=== PATIENT | male | born 1960 | race Caucasian/White ===

== ENCOUNTER 2016-05-08 20:57 | Emergency (ER) ==
--- NOTE | 2016-05-08 21:45 | PROVIDER DOCUMENTATION ---
HPI-General Adult <Ayden Shore - Last Filed: 05/08/16 22:44> - General Source: patient - History of Present Illness -Gen Adult Nature of Presenting Problems: 55 year old M presents to the ED with a cc of cough, sore throat, congestion, and back pain. PT states that cough, sore throat, and congestion began Saturday night and back pain began Saturday. Pt c/o chest pain with coughing. Location of Pain/Injury: reports: back Pain Radiation: reports: no radiation Quality of Pain: reports: aching Severity: reports: mild Onset/Duration: reports: 3 days ago Timing: reports: still present Modifying Factors: worse with: other (walking) Associated Symptoms: reports: back/neck pain, cough, EENT symptoms, sinus congestion/drainage Similar Symptoms Previously?: No Recently seen or treated by another doctor?: No <Puja Alex - Last Filed: 05/08/16 22:52> - General Chief Complaint: Flu Symptoms Stated Complaint: FLU LIKE SX Time Seen by Provider: 05/08/16 21:40 Allergies/Adverse Reactions: Patient Allergies Allergy/AdvReac Type Severity Reaction Status Date / Time No Known Allergies Allergy Verified 05/08/16 22:11 Home Medications: Home Medication List Medication Instructions Recorded Confirmed Last Taken Type Amoxicillin 875 mg PO Q8HR #30 tablet 05/08/16 Unknown Rx Ibuprofen/Hydrocodone [Vicoprofen 1 each PO Q4H PRN PRN #30 tablet 05/08/16 Unknown Rx 200/7.5 mg] Methocarbamol [Robaxin-750] 750 mg PO TID #30 tablet 05/08/16 Unknown Rx Review of Systems - Adult - REVIEW OF SYSTEMS - ADULT Constitutional: denies: chills, fever Eyes: reports: no symptoms reported Ears, Nose, Mouth & Throat: reports: sinus problem, throat pain. denies: ear pain Cardiovascular: reports: no symptoms reported Respiratory: reports: cough. denies: shortness of breath Gastrointestinal: denies: nausea, vomiting Genitourinary: reports: no symptoms reported Musculoskeletal: reports: back pain. denies: neck pain Integumentary: reports: no symptoms reported Neurological: reports: no symptoms reported Psychiatric: reports: no symptoms reported Endocrine: reports: no symptoms reported Hematologic/Lymphatic: reports: no symptoms reported Allergic/Immunologic: reports: no symptoms reported All Other Systems: Reviewed and Negative <Puja Alex - Last Filed: 05/08/16 22:52> Past History - Adult - PAST MEDICAL HISTORY-ADULT Review of Records: reports: Nursing Assessment Review, Medications Reviewed Major Childhood Illnesses: reports: denies history Cardiovascular: reports: [place] Musculoskeletal: reports: other (gout) - PRIOR SURGERIES/PROCEDURES Surgical/Procedure History: reports: orthopedic (extremity) (left hand) - IMMUNIZATION STATUS Childhood Immunizations: See Nurse Assessment Flu Vaccine: See Nurse Assessment - SOCIAL HISTORY Smoking: quit greater than 1 year Substance Use: none/never Alcohol Use Frequency: never <Puja Alex - Last Filed: 05/08/16 22:52> Physical Exam-General - PHYSICAL EXAM-ADULT Initial Vital Signs Reviewed: Yes - CONSTITUTIONAL General Appearance: appears well, alert, no apparent distress - HEAD, EARS, NOSE, MOUTH & THROAT HENMT: normocephalic/atraumatic, moist mucous membranes, normal ENT inspection, TMs normal, pharynx normal - RESPIRATORY Respiratory: chest non-tender, normal breath sounds, rhonchi (left greater than right) - CARDIOVASCULAR Cardiovascular: normal peripheral pulses, regular rate, rhythm, no edema - GASTROINTESTINAL (ABDOMEN) Abdominal Exam: non tender, soft - MUSCULOSKELETAL Back Exam: vertebral tenderness (L4-5, paraspinous lumbar muscle tenderness) <Puja Alex - Last Filed: 05/08/16 22:52> Progress - PLAN OF CARE/RESULTS Progress/Plan/Lab Results: plan of care: imaging, labs, medications Orders Category Date Time Status CHEST-2 VIEWS [RAD] Stat Exams 05/08/16 21:48 Taken LUMBAR SPINE W/O CONTRAST [CT] Stat Exams 05/08/16 21:48 Taken Flu Swab [INFLUENZA SCREEN A/B] Stat Lab 05/08/16 21:04 Completed CefTRIAXONE [Rocephin] Med 05/08/16 22:47 Discontinued 1 gm IM NOW ONE Dexamethasone [Decadron] Med 05/08/16 21:48 Discontinued 10 mg IM NOW ONE Ketorolac [Toradol] Med 05/08/16 21:48 Discontinued 60 mg IM NOW ONE Lidocaine 1% Pf [Xylocaine-Mpf 1%] Med 05/08/16 22:47 Discontinued 5 ml INJ NOW ONE Oxycodone/APAP 10 mg/325 mg [Percocet-10] Med 05/08/16 21:48 Discontinued 1 each PO NOW ONE Vital Signs - 24 hr 05/08/16 21:01 Temperature 97.5 F L Pulse Rate 85 Respiratory 18 Rate Blood Pressure 140/92 O2 Sat by Pulse 99 Oximetry Pt given results and will be d/c home w/ rx to follow up with PCP. Pt verbally understood instructions. PT remained clinically stable throughout the course of the ED stay and will return if symptoms worsen. - XRAY 1 XRAY Interpretation: small nodule RUL and small infiltrate RLL: Dr. Shore- ER MD - CT/MRI 1 CT Study: Lumbar Spine Impression: Normal (No fx. Spinal stenosis and neuralforaminal narrowing in the lower L spine: Dr. Snyder-radiologist) <Puja Alex - Last Filed: 05/08/16 22:52> Departure - Departure Time of Disposition Order: 22:45 Certified Medical Emergency: Emergent <Ayden Shore - Last Filed: 05/08/16 22:44> <Puja Alex - Last Filed: 05/08/16 22:52> - Departure DIAGNOSIS: Acute lumbar back pain, Stenosis of lumbosacral spine, Bronchitis Disposition: HOME 01 Condition: Stable Additional Instructions: ED Follow Up Instructions:repeat cxr in 4week and recheck by pcp You have been treated by a care provider in the Emergency Department. These instructions are being provided to you so you can have an understanding of how to care for yourself upon discharge. Upon discharge from the Emergency Department, you are responsible for making arrangements for follow-up care by a physician of your choice. Take all prescribed medications as directed. Return to the Emergency Department immediately for any new or worsening symptoms. You may call the Physician Referral phone number at [phone] to obtain a list of Physicians who are taking new patients. Prescriptions: Amoxicillin 875 mg PO Q8HR #30 tablet Methocarbamol [Robaxin-750] 750 mg PO TID #30 tablet Ibuprofen/Hydrocodone [Vicoprofen 200/7.5 mg] 1 each PO Q4H PRN PRN #30 tablet PRN Reason: Pain Referrals: None,PCP [Primary Care Provider] - Attestation - Scribe Verification/Attestation Scribe:: Puja Alex Acting as Scribe for:: Ayden Shore Scribe documention review:: This chart was documented by a scribe and accurately reflects the service the provider performed and the decisions made by the provider. <Puja Alex - Last Filed: 05/08/16 22:52> Physician Attestation - Physician Attestation I, the provider, attest to the following statement:: Ayden Shore Physician documentation Attestation:: This documentation recorded by the scribe accurately reflects the service I personally performed and the decisions made by me. <Puja Alex - Last Filed: 05/08/16 22:52>
[2016-05-08] MEDS ORDERED: DECADRON IM ONE (21:48)
[2016-05-08] MEDS ORDERED: PERCOCET-10 PO ONE (21:48)
[2016-05-08] MEDS ORDERED: TORADOL IM ONE (21:48)
[2016-05-08] MEDS ORDERED: ROCEPHIN IM ONE (22:47)
[2016-05-08] MEDS ORDERED: XYLOCAINE-MPF 1% INJ ONE (22:47)
[2016-05-08 23:09] VITALS: BP 165/96
--- NOTE | 2016-05-08 23:20 | Diag Imaging Result Document ---
PROCEDURE NAME: LUMBAR SPINE W/O CONTRAST - 05/08/2016 CT LUMBAR SPINE WITHOUT CONTRAST: FINDINGS: There is good alignment to the lumbar spine. No compressed vertebra. No other fracture. There is nonunion to the right transverse process of the L1 vertebra. There are degenerative changes to the lumbar spine. There is multilevel spinal stenosis in the lower lumbar spine. The spinal stenosis is most pronounced at L4-5. There is neural foraminal narrowing at each of these levels and marked neural foraminal narrowing on the right at L5-S1. There is at least moderate spinal stenosis at L3-4. IMPRESSION: 1. No acute bony injury. 2. Multilevel spinal stenosis and neural foraminal narrowing. A follow-up MRI on an outpatient basis may be beneficial. A preliminary report was given at 10:38 p.m..
--- NOTE | 2016-05-09 07:27 | Diag Imaging Result Document ---
PROCEDURE NAME: CHEST-2 VIEWS - 05/08/2016 CHEST X-RAY, 2 VIEWS: COMPARISON: None. FINDINGS: There may be a subtle infiltrate in the lingula. Heart size is normal. No pneumothorax or pleural effusion. IMPRESSION: Questionable lingular infiltrate/pneumonia.
== END 2016-05-08 23:33 | disposition home or self-care (01) ==
LOC: ED 20:57
DX: J40 Bronchitis, not specified as acute or chronic (principal); M48.07 Spinal stenosis, lumbosacral region; M54.5 Low back pain; R05 Cough; J02.9 Acute pharyngitis, unspecified; R09.81 Nasal congestion; R07.89 Other chest pain; M79.1 Myalgia; I25.2 Old myocardial infarction; Z87.891 Personal history of nicotine dependence
CPT/HCPCS: 71020; 72131; 87804; J0696; J1885

== ENCOUNTER 2019-04-16 08:38 | Observation (INO) ==
[2019-04-16] MEDS ORDERED: ASPIRIN PO ONE (08:42)
--- NOTE | 2019-04-16 08:55 | PROVIDER DOCUMENTATION ---
HPI-Chest Pain - General Chief Complaint: Chest Pain Stated Complaint: CHEST PAIN Time Seen by Provider: 04/16/19 08:43 Source: patient Allergies/Adverse Reactions: Patient Allergies Allergy/AdvReac Type Severity Reaction Status Date / Time No Known Allergies Allergy Verified 08/25/17 13:07 Home Medications: Home Medication List Medication Instructions Recorded Confirmed Last Taken Type Glimepiride [Amaryl] 4 mg PO DAILY #30 tab 08/25/17 Unknown Rx Metformin [Glucophage] 500 mg PO BID CC #60 tab 08/25/17 Unknown Rx Ondansetron [Ondansetron Odt] 4 mg PO Q6-8H PRN PRN #20 04/08/18 Unknown Rx tab.rapdis Oseltamivir [Tamiflu] 75 mg PO BID #10 cap 04/08/18 Unknown Rx Cyclobenzaprine [Flexeril] 10 mg PO Q8H PRN #12 tab 05/15/18 Unknown Rx Ibuprofen [Motrin] 800 mg PO Q8H PRN PRN #20 tab 05/15/18 Unknown Rx - History of Present Illness-CP Nature of Presenting Problem: 58 YOM who denies PMH however it is noted a hx of DM in previous records, pt denies taking any medications. He presents with c/o sharp and heavy CP that radiates down the L arm intermittently since Saturday, no associated symptoms. Hx of heart cath, unknown results has been years ago. He also c/o L leg pain in the hip worse with movement. He denies cough, fever, chills, sob, n/v/d. Location: reports: substernal Chest Pain Radiation: reports: arms (L) Quality of Pain: reports: pressure, sharp Severity in ED: moderate Onset/Duration: 24 hours ago Timing: intermittent Context/Activities at Onset: reports: none Modifying Factors: improves with: nothing Associated Symptoms: reports: denies symptoms Nitro Today/Relief: no nitro taken today Aspirin Treatment Today: 325 mg x 1, provided by ED Prior Chest Pain/Cardiac Workup: reports: cardiac cath (UNKNWON RESULTS, YEARS AGO) Similar Symptoms Previously?: No Recently Seen Here or By Another Healthcare Provider: No Review of Systems - Adult - REVIEW OF SYSTEMS - ADULT Constitutional: reports: no symptoms reported. denies: see HPI, chills, fever, fatique, night sweats, weight gain, weight loss, other Eyes: reports: no symptoms reported. denies: see HPI, discharge, dry eyes, decreased vision, blurred vision, double vision, eye pain, redness, other Ears, Nose, Mouth & Throat: reports: no symptoms reported. denies: see HPI, ear discharge, ear pain, hearing loss, tinnitus, epistaxis, sinus problem, nose pain, loose teeth, mouth/dental pain, mouth swelling, hoarseness, throat pain, throat swelling, other Cardiovascular: reports: chest pain. denies: no symptoms reported, see HPI, edema, heart murmur, irregular heart rate, orthopnea, palpitations, poor circulation, PND, syncope, other Respiratory: reports: no symptoms reported. denies: see HPI, chronic cough, cough, dyspnea on exertion, excessive sputum production, hemoptysis, pleurisy, shortness of breath, wheezing, other Gastrointestinal: reports: no symptoms reported. denies: see HPI, abdominal pain, hematemesis, constipation, diarrhea, difficulty swallowing, frequent heartburn, nausea, poor appetite, rectal bleeding, vomiting, other Genitourinary: reports: no symptoms reported. denies: see HPI, dysuria, discharge, frequency, flank pain, frequent UTI's, hematuria, hesitency, incontinence, urinary retention, urgency, other Musculoskeletal: reports: see HPI, joint pain. denies: no symptoms reported, bone pain, back pain, frequent leg cramps, joint swelling, muscle aches, muscle weakness, neck pain, other Integumentary: reports: no symptoms reported. denies: see HPI, hives, hair loss, itching, mole changes, nail changes, rash, skin sores/ulcer, skin thickening, other Neurological: reports: no symptoms reported. denies: see HPI, ataxia, dizziness/vertigo, headache/migraines, loss of balance, numbness, paresthesia, seizure, slurred speech, syncope, tremors, other Psychiatric: reports: no symptoms reported. denies: see HPI, anxiety, anti- depressant use, alcohol/drug dependence, depression, emotional problems, insomnia, panic attacks, suicidal thoughts, other Endocrine: reports: no symptoms reported. denies: see HPI, change in skin pigment, excessive sweating, goiter, cold intolerance, heat intolerance, increased hunger, increased thirst, polyuria, other Hematologic/Lymphatic: reports: no symptoms reported. denies: see HPI, blood clots, easy bruising, low blood count, lymphedema, prolonged bleeding, swollen lymph nodes, transfusions, other Allergic/Immunologic: reports: no symptoms reported. denies: see HPI, allergic reactions, allergic rhinitis, asthma, eczema, food allergy, frequent infections, hay fever, hives, positive PPD, urticaria, other Past History - Adult - PAST MEDICAL HISTORY-ADULT Review of Records: reports: Nursing Assessment Review, Social history reviewed & non-contributory. Major Childhood Illnesses: reports: denies history Cardiovascular: reports: [place] Respiratory: reports: denies history Gastrointestinal: reports: denies history Obstetrical/Gynecological: reports: denies history Genitourinary: reports: denies history Musculoskeletal: reports: other (gout) Neurological: reports: denies history Psychiatric: reports: denies history Endocrine/Immune: reports: denies history Other Conditions: reports: denies history - PRIOR SURGERIES/PROCEDURES Surgical/Procedure History: reports: orthopedic (extremity) (left hand) - IMMUNIZATION STATUS Childhood Immunizations: See Nurse Assessment Flu Vaccine: See Nurse Assessment - FAMILY HISTORY Family History: reviewed, not pertinent Physical Exam-General - PHYSICAL EXAM-ADULT Initial Vital Signs Reviewed: Yes - CONSTITUTIONAL General Appearance: appears well, alert, no apparent distress - EYES Eyes: PERRL/EOMI, pink conjunctivae - HEAD, EARS, NOSE, MOUTH & THROAT HENMT: normocephalic/atraumatic, moist mucous membranes, normal ENT inspection - NECK Neck: non-tender, full range of motion, supple - RESPIRATORY Respiratory: chest non-tender, lungs clear, normal breath sounds, no pleuratic chest pain, no respiratory distress, no accessory muscle use - CARDIOVASCULAR Cardiovascular: normal peripheral pulses, regular rate, rhythm, no edema, no gallop, no JVD, no murmur - CHEST (BREASTS) Chest/Breast: tenderness (GENERALIZED CHEST) - GASTROINTESTINAL (ABDOMEN) Abdominal Exam: normal bowel sounds, non tender, soft - LYMPHATIC Lymphatic: no adenopathy - MUSCULOSKELETAL Back Exam: normal inspection, no CVA tenderness, no vertebral tenderness Extremity: normal range of motion, non-tender, normal gait, normal inspection Peripheral Pulses: radial (R): 2+, radial (L): 2+ - SKIN Integumentary: normal color, normal turgor, warm/dry - NEUROLOGIC Neurologic: grossly normal - PSYCHIATRIC Psych/Mental Status: normal mood/affect, oriented x 3 - HEART Score HEART Score: History: Moderately Suspicious HEART Score: ECG: Non-Specific Repolarization Disturbance/LBBB/PM HEART Score: Age: 45-65 Years HEART Score: Risk Factors for Atherosclerotic Disease: 1 or 2 Risk Factors HEART Score: Troponin: < or = Normal Limit Total HEART Score:: 4 Progress - PLAN OF CARE/RESULTS Progress/Plan/Lab Results: Vital Signs - 8 hr 04/16/19 08:41 04/16/19 09:42 Temperature 98.2 F Pulse Rate 79 72 Respiratory Rate 18 22 Blood Pressure 175/89 153/92 O2 Sat by Pulse Oximetry 95 94 L Laboratory Results - last 24 hr 04/16/19 04/16/19 04/16/19 08:50 08:50 08:50 WBC RBC Hgb Hct MCV MCH MCHC RDW Std Deviation Plt Count MPV Immature Gran % (Auto) Neut % (Auto) Lymph % (Auto) Thomas % (Auto) Eos % (Auto) Baso % (Auto) Immature Gran # (Auto) Neut # (Auto) Lymph # (Auto) Thomas # (Auto) Eos # (Auto) Baso # (Auto) PT INR PTT (Actin FS) Sodium 133 L Potassium 4.2 Chloride 99 Carbon Dioxide 23 L Anion Gap 12 BUN 11 Creatinine 0.7 Estimated GFR/1.73 m2 > 60 BUN/Creatinine Ratio 16 Glucose 279 H Calculated Osmolality 276 Calcium 9.1 Total Bilirubin 0.50 AST 21 ALT 30 Alkaline Phosphatase 80 Creatine Kinase 189 Troponin T High Sens 7 Obi-W-Wrnwnrxlkkf Pept 19 Total Protein 7.1 Albumin 4.2 Globulin 3.0 Albumin/Globulin Ratio 1.0 04/16/19 04/16/19 08:50 08:50 WBC 7.16 RBC 5.03 Hgb 14.9 Hct 45.0 MCV 89.5 MCH 29.6 MCHC 33.1 RDW Std Deviation 12.4 Plt Count 237 MPV 9.4 Immature Gran % (Auto) 0.3 Neut % (Auto) 65.1 Lymph % (Auto) 21.5 Thomas % (Auto) 10.8 H Eos % (Auto) 1.7 Baso % (Auto) 0.6 Immature Gran # (Auto) 0.02 Neut # (Auto) 4.67 Lymph # (Auto) 1.54 Thomas # (Auto) 0.77 H Eos # (Auto) 0.12 Baso # (Auto) 0.04 PT 12.5 INR 0.89 PTT (Actin FS) 28.3 Sodium Potassium Chloride Carbon Dioxide Anion Gap BUN Creatinine Estimated GFR/1.73 m2 BUN/Creatinine Ratio Glucose Calculated Osmolality Calcium Total Bilirubin AST ALT Alkaline Phosphatase Creatine Kinase Troponin T High Sens Xvb-N-Kmzrosgetji Pept Total Protein Albumin Globulin Albumin/Globulin Ratio Orders Category Date Time Status Cardiac Monitoring DIRECTED Care 04/16/19 08:42 Active Oxygen Therapy- ED Nursing DIRECTED Care 04/16/19 08:42 Active Saline Loc NOW Care 04/16/19 08:42 Active CHEST-2 VIEWS [RAD] Stat Exams 04/16/19 08:42 Completed CBC WITH ELECTRONIC DIFF [HEME] Stat Lab 04/16/19 08:50 Completed CK PROFILE [SP CHEM] Stat Lab 04/16/19 08:50 Completed COMPREHENSIVE METABOLIC PANEL [CHEM] Stat Lab 04/16/19 08:50 Completed PRO B-NATRIURETIC PEPTIDE Stat Lab 04/16/19 08:50 Completed PROTIME WITH INR [COAG] Stat Lab 04/16/19 08:50 Completed PTT [COAG] Stat Lab 04/16/19 08:50 Completed TROPONIN T HIGH SENSITIVITY Stat Lab 04/16/19 08:50 Completed Aspirin Med 04/16/19 08:42 Discontinued 325 mg PO NOW ONE Morphine Med 04/16/19 09:36 Discontinued 4 mg IV NOW ONE Ondansetron [Zofran] Med 04/16/19 09:36 Discontinued 4 mg IV NOW ONE CP/SOB/Palp >45 yrs of Age Stat Oth 04/16/19 08:42 Ordered EKG [EKG] Stat Ther 04/16/19 08:42 Draft Result Diagrams: 04/16/19 08:50 04/16/19 08:50 - REASSESSMENT Reassessment #1 Time Reassessed: 10:12 (pain improved with morphine ) Status: improving - EKG 1 Time of EKG reading by physician:: 08:49 EKG Read and Signed by:: Juwan Mcclelland EKG Interpretation (*Must complete 3 of following elements*): Abnormal Rate: 76 Rhythm: NSR [place]: normal QRS: RBB (INCOMPLETE) MS Interval: normal ST Wave: normal Prior EKG Comparison: changes noted (INCOMPLETE RBBB) - XRAY 1 XRAY Study: Chest Impression: See EMR Report Comparison with other Films: no prior study (EXAM: CHEST-2 VIEWS HISTORY: cp TECHNIQUE: Two views COMPARISON: 05/15/2018 FINDINGS: The lungs are well expanded. The heart is not enlarged. The vessels are not distended. There are no infiltrates. No pleural effusions. IMPRESSION: No acute abnormality. Electronically signed by Yobani Snyder 04/16/2019 9:02 AM 04/16/19901 Interpreting Physician: Yobani Snyder MD Dictated Date/Time: 04/16/19901 cc: Juwan Mcclelland MD; None,PCP) - CONSULTS/PCP/HOSPITALIST Notification #1 *Consult/PCP/Hospitalist*: Dr. Navarrete Time Discussed: 10:11 Consult Disposition: Admit Departure - Departure Date of Disposition Decision: 04/16/19 Time of Disposition Decision: 10:11 DIAGNOSIS: Chest pain, Diabetes Disposition: ADMITTED INPATIENT 09 Certified Medical Emergency: Emergent Condition: Stable Referrals and Follow-Ups: None,PCP [Primary Care Provider] - - Critical Care Note This patient required my direct & personal management of CC.: No Attestation - Physician/ ALEX Attestation Patient care was provided by Advanced Practice Provider:: Yes Advanced Practice Provider:: Mirtha Burton Advanced Practice Provider documentation review:: The Mid-level provider documentation, treatment plan and medical decision making was reviewed by the physician who agrees with all treatment and medical decision making by the MLP. The physician spent face to face time with patient:: No Advanced Practice Provider documentation review:: Supervising physician onsite and consulted in the evaluation and care of this patient. The physician did not have a face to face encounter with the patient.
--- NOTE | 2019-04-16 09:04 | Diag Imaging Result Doc PS360 ---
EXAM: CHEST-2 VIEWS HISTORY: cp TECHNIQUE: Two views COMPARISON: 05/15/2018 FINDINGS: The lungs are well expanded. The heart is not enlarged. The vessels are not distended. There are no infiltrates. No pleural effusions. IMPRESSION: No acute abnormality. Electronically signed by Yobani Snyder 04/16/2019 9:02 AM
[2019-04-16 09:07] LABS: BASO# 0.04 X1000 (0.0-0.2); BASO% 0.6 % (0.0-0.8); EOS# 0.12 X1000 (0.0-0.7); EOS% 1.7 % (0.0-10.0); HEMOGLOBIN 14.9 g/dL (14.0-18.0); IMM GRAN# 0.02 X1000 (0.0-0.04); IMM GRAN% 0.3 % (0.0-0.5); LYMPH# 1.54 X1000 (1.2-3.4); LYMPH% 21.5 % (20.5-51.1); MCH 29.6 PG (27-31); MCHC 33.1 g/dL (33-37); MCV 89.5 FL (81-99); MONO# 0.77 X1000 (0.11-0.59); MONO% 10.8 % (1.7-9.3); MPV 9.4 FL (7.4-10.4); NEUT# 4.67 X1000 (1.4-6.5); NEUT% 65.1 % (42.2-75.2); PLT 237 X1000 (130-400); RBC 5.03 XMIL (4.7-6.1); RDW 12.4 % (11.5-14.5); WBC 7.16 X1000 (4.8-10.8)
--- NOTE | 2019-04-16 09:16 | EKG Report ---
Test Performed on : 04/16/2019 08:44:46 AM Test Reason : cp Blood Pressure : / mmHG Vent. Rate : 076 BPM Atrial Rate : 076 BPM P-R Int : 170 ms QRS Dur : 106 ms QT Int : 362 ms P-R-T Axes : 028 001 036 degrees QTc Int : 407 ms Normal sinus rhythm. Incomplete right bundle branch block Borderline ECG When compared with ECG of 25-AUG-2017 12:37, No significant change was found Unconfirmed Result
[2019-04-16 09:29] LABS: AGAP 12; ALBUMIN 4.2 g/dL (3.5-5.0); ALKALINE PHOSPHATASE 80 U/L (32-122); BUN 11 mg/dL (8-22); CALCIUM 9.1 mg/dL (8.8-10.2); CHLORIDE 99 mmol/L (98-107); CK PROFILE 189 U/L (24-204); COSMO 276; CREATININE 0.7 mg/dL (0.7-1.2); ESTIMATED GFR > 60; GLUCOSE 279 mg/dL (70-104); GOT 21 U/L (10-34); GPT 30 U/L (10-44); POTASSIUM 4.2 mmol/L (3.5-5.1); SODIUM 133 mmol/L (136-145); TCO2 23 mmol/L (25-35); TOTAL PROTEIN 7.1 g/dL (6.3-8.3)
[2019-04-16 09:32] LABS: INR 0.89; PROTIME 12.5 Seconds (11.0-16.0)
[2019-04-16 09:33] LABS: PTT 28.3 Seconds (22.3-41.8)
[2019-04-16] MEDS ORDERED: ZOFRAN IV ONE (09:36)
[2019-04-16] MEDS ORDERED: MORPHINE IV ONE (09:36)
[2019-04-16 10:35] LABS: HEMOGLOBIN A1C 11.9 % (4.8-6.0)
[2019-04-16] MEDS ORDERED: TYLENOL PO PRN (11:39)
[2019-04-16] MEDS ORDERED: ZOFRAN IV PRN (11:39)
[2019-04-16] MEDS ORDERED: NITROGLYCERIN SL PRN (11:39)
[2019-04-16] MEDS ORDERED: APRESOLINE IV PRN (12:06)
[2019-04-16] MEDS ORDERED: PNEUMOVAX 23 IM ONE (12:31)
[2019-04-16] MEDS ORDERED: FLU VACCINE IM ONE (12:31)
--- NOTE | 2019-04-16 12:31 | HISTORY AND PHYSICAL ---
PRIMARY CARE PROVIDER: None. CHIEF COMPLAINT: Chest pain. HISTORY OF PRESENT ILLNESS: Mr. Owens is a 58-year-old male who claims no past medical history, takes no home medications but reports a constant sharp chest pain that radiated down his left arm and left leg since yesterday, felt like an elephant sitting on his chest. It is associated with shortness of breath, funny feeling in his heart. There was no dizziness or diaphoresis. Nothing made the pain worse. The pain was relieved with morphine. He did report he got dizzy after the morphine was given to him. Workup in the ED, first set of cardiac enzymes were negative. EKG showed a normal sinus rhythm with an incomplete right bundle branch block. When compared to old EKG, there was no significant change found. He will be admitted and ruled out for ID as well as control of his diabetes. Hemoglobin A1c of 11.9. We will continue with further care and treatment. PAST MEDICAL HISTORY: Denies. However, he has been discharged from the ED with diabetic medicines previously in 2018 on Amaryl and Glucophage but he reports he did not take them. PAST SURGICAL HISTORY: Plate in his left arm. FAMILY HISTORY: Mom with hypertension, diabetes and stroke. SOCIAL HISTORY: He is , is at bedside. No tobacco, alcohol, marijuana or illicit drug use. ALLERGIES: No known drug allergies. REVIEW OF SYSTEMS: Twelve-point review of systems complete and negative except for those mentioned in HPI. PHYSICAL EXAMINATION: VITAL SIGNS: Temperature is 97.6 degrees, heart rate 69, respirations 18, blood pressure 136/83, O2 is 100% on room air. GENERAL: Mr. Owens is a pleasant 58-year-old male who is sitting up on the stretcher in no acute distress. HEENT: Atraumatic, normocephalic. PERRL. NECK: Supple. Trachea midline. CARDIOVASCULAR: S1, S2 appreciated. No murmurs, gallops, or rubs noted. RESPIRATORY: Lung sounds clear bilaterally. GASTROINTESTINAL: Soft, nontender, nondistended. Positive bowel sounds 4 quads. LOWER EXTREMITIES: Negative for edema. NEUROLOGIC: No focal deficits noted. DIAGNOSTIC DATA: Chest x-ray, no acute abnormality. LABORATORY DATA: White count 7, hemoglobin and hematocrit 14 and 45, platelet count is 237,000. Chemistry: Sodium 133, potassium 4.2, BUN 11, creatinine 0.7, blood glucose is 279. Hemoglobin A1c is 11.9. First troponin is 7, CK 189. ASSESSMENT AND PLAN: 1. Chest pain. Some components are typical, some are atypical. We will rule him out for serial cardiac enzymes. Make him n.p.o. after midnight. Do a stress test in the a.m. Echocardiogram. Continue with aspirin. Do a lipid profile, echocardiogram, n.p.o. after midnight, stress test in a.m., and repeat EKG in a.m. 2. Uncontrolled diabetes mellitus with noncompliance and hyperglycemia. Hemoglobin A1c is 11.9. Will need continued education on medical compliance and diabetes education. We will place him on pattern blood sugars with sliding scale, diabetic diet. 3. Hypertension in the emergency department. He reports no medical history of hypertension. Further recommendations to follow physician evaluation, laboratory and diagnostic data. Dictated by MARTHA Villa for Giuseppe Rain MD cc: Giuseppe Rain MD
[2019-04-16 15:48] LABS: URINE SOURCE VOIDED
[2019-04-16 15:52] LABS: BILIRUBIN URINE NEGATIVE (NEGATIVE); BLOOD URINE NEGATIVE (NEGATIVE); COLOR YELLOW; GLUCOSE URINE >1000 mg/dL (NEGATIVE); KETONE URINE NEGATIVE (NEGATIVE); LEUKOCYTES URINE NEGATIVE (NEGATIVE); NITRITE URINE NEGATIVE (NEGATIVE); PH URINE 6.5; PROTEIN URINE NEGATIVE (NEGATIVE); TURBIDITY URINE CLEAR (CLEAR); UROBILINOGEN URINE NORMAL (NORMAL)
[2019-04-16 15:56] LABS: UR EPITHELIAL CELLS <10 /HPF (<10); URINE BACTERIA NEGATIVE /HPF; URINE CASTS NONE SEEN; URINE CRYSTALS NONE SEEN; URINE RBC <10 /HPF (<10); URINE SMALL ROUND CELLS NONE SEEN; URINE WBC <10 /HPF (<10); URINE YEAST NONE SEEN
[2019-04-16] MEDS ORDERED: HUMALOG (PARKWAY) SUBQ SCH (16:00)
[2019-04-16] MEDS: HUMALOG (PARKWAY) SUBQ SCH ×2 (17:33→23:20)
--- NOTE | 2019-04-16 21:42 | HISTORY AND PHYSICAL ---
ADDENDUM: Patient seen and examined by myself. Full note dictated and discussed with nurse practitioner. Patient presented to the hospital with chest pain, which seems somewhat atypical. He has a history of uncontrolled diabetes with an A1c of 11.9, and hypertension, both of which the patient is adamant that he does not have. We are going to admit him to the hospital and attempt to educate him on diabetes and hypertension, and reasons for control. Will rule out NH and will follow. Please see full note. cc: Giuseppe Rain MD
[2019-04-17] MEDS ORDERED: NS 1,000 ML IV SCH (00:01)
[2019-04-17 05:25] LABS: BASO# 0.03 X1000 (0.0-0.2); BASO% 0.4 % (0.0-0.8); EOS# 0.12 X1000 (0.0-0.7); EOS% 1.8 % (0.0-10.0); HEMATOCRIT 46.5 % (42.0-52.0); HEMOGLOBIN 14.6 g/dL (14.0-18.0); IMM GRAN# 0.03 X1000 (0.0-0.04); IMM GRAN% 0.4 % (0.0-0.5); LYMPH# 1.65 X1000 (1.2-3.4); LYMPH% 24.2 % (20.5-51.1); MCH 28.6 PG (27-31); MCHC 31.4 g/dL (33-37); MCV 91.2 FL (81-99); MONO# 0.81 X1000 (0.11-0.59); MONO% 11.9 % (1.7-9.3); MPV 9.7 FL (7.4-10.4); NEUT# 4.17 X1000 (1.4-6.5); NEUT% 61.3 % (42.2-75.2); PLT 246 X1000 (130-400); RDW 12.7 % (11.5-14.5); WBC 6.81 X1000 (4.8-10.8)
[2019-04-17 06:05] LABS: AGAP 12; ALBUMIN 3.8 g/dL (3.5-5.0); ALKALINE PHOSPHATASE 74 U/L (32-122); BUN 12 mg/dL (8-22); CHLORIDE 100 mmol/L (98-107); CHOLESTEROL 162 mg/dL (0-200); COSMO 283; CREATININE 0.7 mg/dL (0.7-1.2); ESTIMATED GFR > 60; GLUCOSE 263 mg/dL (70-104); GOT 18 U/L (10-34); GPT 26 U/L (10-44); HDL 47 mg/dL (35-55); LDL 93 mg/dL; MAGNESIUM 2.1 mg/dL (1.5-2.7); POTASSIUM 4.3 mmol/L (3.5-5.1); SODIUM 137 mmol/L (136-145); TCO2 25 mmol/L (25-35); TOTAL PROTEIN 6.9 g/dL (6.3-8.3); TRIGLYCERIDES 111 mg/dL (39-160); VLDL 22 mg/dL
[2019-04-17] MEDS: HUMALOG (PARKWAY) SUBQ SCH ×2 (06:22→12:04)
--- NOTE | 2019-04-17 06:31 | EKG Report ---
Test Performed on : 04/17/2019 05:47:05 AM Test Reason : CP Blood Pressure : / mmHG Vent. Rate : 065 BPM Atrial Rate : 065 BPM P-R Int : 162 ms QRS Dur : 102 ms QT Int : 392 ms P-R-T Axes : 024 006 031 degrees QTc Int : 407 ms Normal sinus rhythm. Normal ECG When compared with ECG of 16-APR-2019 08:44, (Unconfirmed) No significant change was found Unconfirmed Result
[2019-04-17] MEDS ORDERED: PRILOSEC PO SCH (07:00)
--- NOTE | 2019-04-17 07:36 | Diag Imaging Result Doc PS360 ---
EXAM: CHEST-PORTABLE - 04/17/2019 HISTORY: Chest Pain TECHNIQUE: Portable chest COMPARISON: 04/16/2019 FINDINGS: Heart size is normal. There is subsegmental atelectasis at the lateral left base. The remainder of the lungs appear clear. There is no substantial pleural effusion or pneumothorax identified. IMPRESSION: Mild atelectasis at left base. Electronically signed by Jeff Mehta 04/17/2019 7:33 AM
--- NOTE | 2019-04-17 08:57 | ECHO REPORT ---
ORDER DATE: 04/16/2019 MEASUREMENTS: 1. Septal thickness 1.2. 2. Left ventricular internal diastole 4.1. 3. Posterior wall thickness 1.2. 4. Aortic root 3.8. 5. Left atrium 4.3. SUMMARY: 1. Fair quality study. 2. Aortic valve is trileaflet and opens normally on 2-dimensional images. The peak gradient across aortic valve is less than 10 mmHg. Mitral, tricuspid, and pulmonic valves are without evidence of structural abnormality with trace mitral regurgitation and mild tricuspid regurgitation. The estimated systolic PA pressure by Doppler is 25 mmHg. The aortic root is normal size. 3. Normal left ventricular chamber size with mild concentric left hypertrophy is demonstrated. Estimated left ejection fraction appears to be at least 65%. No regional wall motion abnormality is evident. Left atrium is mildly enlarged. Right atrium and right ventricle are normal in size with preserved right ventricular systolic function. The intraatrial septum appears lipomatous. 4. No pericardial effusion. 5. Appearance of inferior vena cava suggests normal central venous pressure. CONCLUSIONS: 1. Trace mitral regurgitation and mild tricuspid regurgitation. 2. Mild concentric left hypertrophy with estimated ejection fraction at least 65%. 3. Mild left atrial enlargement. cc: Pablo Baker MD
[2019-04-17] MEDS ORDERED: ASPIRIN PO SCH (09:00)
[2019-04-17] MEDS ORDERED: LEXISCAN ONE (09:00)
--- NOTE | 2019-04-17 14:52 | Diag Imaging Result Document ---
PROCEDURE NAME: MYOCARDIAL PERF SCAN, STR/REST - 04/17/2019 INDICATION: Chest pain. PROCEDURES PERFORMED: 1. Lexiscan stress (results dictated separately by performing physician). 2. One-day stress/rest myocardial perfusion imaging (rest dose 15.9 mCi, stress dose 44.3 mCi). FINDINGS: LEXISCAN STRESS RESULTS: 1. Dictated separately. 2. No evidence of transient ischemic dilatation. 3. The ratio is 0.87. 4. No evidence of abnormal extracardiac uptake. PERFUSION IMAGING RESULTS: 1. Demonstrate essentially normal homogeneous uptake of radiotracer throughout the myocardial segments. There is no evidence of stress-related defects. 2. There is a normal ejection fraction of 74%. The end-diastolic volume is 123 and end-systolic volume 32. Wall motion appears to be normal. cc: Aric Carter MD
[2019-04-17 16:12] VITALS: BP 143/86
--- NOTE | 2019-04-18 04:30 | DISCHARGE SUMMARY ---
ADMISSION DATE: 04/16/2019 DISCHARGE DATE: 04/17/2019 DISCHARGE DIAGNOSES: 1. Chest pain, resolved, atypical. 2. Uncontrolled diabetes in a patient who is adamant that he does not have diabetes despite an A1c at 11.9. 3. Hypertension and again in the patient who is adamant that he does not have high blood pressure. CONSULTATIONS: None. PROCEDURES: Cardiolite GXT. BRIEF HOSPITAL COURSE: The patient is a 58-year-old male who presented to the emergency room with atypical chest pain, palpitations. Thankfully, he ruled out for an VT. He was admitted to the hospital. All of his enzymes remained negative. Symptoms resolved. He did have a stress test that was negative and therefore he will be discharged home. DISPOSITION: Greater than 30 minutes was spent in total care. Discussed with patient that in fact he does have diabetes with an A1c at 11.9. Discussed diet controlled, diet changes. Discussed metformin and following up with his doctor outpatient. Discussed blood pressure medications. cc: Giuseppe Rain MD
== END 2019-04-17 16:35 | disposition home or self-care (01) ==
LOC: P.ED 08:38 → P.MEDSURG 11:13 → INTOOBSV 11:13
PROVIDERS: ATTEND Family Medicine